=== PATIENT | male | born 1950 | race Caucasian/White ===

== ENCOUNTER 2021-10-26 09:49 | Outpatient (CLI) | payer OTHER, SELFPAY ==
--- NOTE | 2021-10-26 10:15 | MR_ITS ---
[address] [address] Phone:?[phone] Fax:?[phone] Referring Physician Information: Rowdy Farooq M.D. [address] [place] [id number] Phone:?[phone] Fax:?[phone] Patient:Clem Hernandez D.O.B:?1950 Sex:?Male Phone:?[phone] [facility] MRN:?[id number] Exam Date:?10/26/2021 ? EXAM: MRI EXAMINATION OF THE RIGHT SHOULDER CLINICAL INFORMATION: Right shoulder pain. Injury. No history of surgery to this area. Evaluate rotator cuff tear. TECHNICAL INFORMATION: Coronal STIR. Axial, sagittal and coronal PD and T2- weighted images acquired. INTERPRETATION: Bones: There is no Hill-Sachs impaction deformity. There are mild to moderate changes of marrow edema signal without evidence for a fracture centered anterior to the midportion of the greater tuberosity. There is no other bone marrow edema pattern. Rotator Cuff: Complete ruptures identified involving the entirety of the expected supraspinatus and infraspinatus tendon insertions. Maximal tendon retraction is to the level of the glenoid surface. Mild supraspinatus and mild to moderate infraspinatus muscle belly atrophy. Marked atrophy involves the teres minor muscle belly. The tendon insertion is seen to be intact. There is an 8 mm craniocaudal segment of poorly defined partial tearing involving the superior subscapularis tendon insertion. Coracoacromial arch: Elevation of the humeral head in relation to the adjacent glenoid. There is additional undersurface spurring of the acromion. The bony acromiohumeral interval is measuring 1 to 2 mm. Acromioclavicular joint: There is a moderate to marked appearance of AC joint DJD. Biceps tendon: Medial subluxation of the long head biceps tendon from the superior bicipital groove. The tendon is intact and appears normal intra- articular. Glenohumeral joint and labrum: There is a small glenohumeral joint effusion. No discrete loose body within the joint. There is a mild appearance of chondral thinning overlying the superior aspect of the humeral head. No other evidence for glenohumeral chondromalacia. Mild irregularity and fraying involves the superior aspect of the labrum. There is tearing involving the anteroinferior aspect of the labrum continuing through the inferior labrum. No discrete paralabral cyst is identified. CONCLUSION: 1. Complete supraspinatus and infraspinatus tendon ruptures. Maximal tendon retraction is to the glenoid surface. Mild supraspinatus and mild to moderate infraspinatus muscle belly atrophy. 2. There is a small, poorly defined partial-thickness tear involving the superior subscapularis tendon insertion. 3. Biceps kristen lesion with medial subluxation of the long head biceps tendon from the superior bicipital groove. 4. Elevation of the humeral head with marked narrowing of the acromiohumeral interval. 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 5. Mild irregularity and fraying involves the superior labrum. There is tearing involving the anteroinferior and inferior labrum. 6. Mild chondral thinning overlying the superior humeral head, without other glenohumeral chondromalacia. KES Electronically signed on 10/26/2021 2:59:00 PM by Dejuan Hunter M.D.
== END 2021-10-26 09:50 | disposition home or self-care (01) ==
LOC: MRI 09:51
PROVIDERS: Visit Provider Orthopaedic Surgery
DX: M25.511 Pain in right shoulder (principal); M75.101 Unspecified rotator cuff tear or rupture of right shoulder, not specified as traumatic; S46.911A Strain of unspecified muscle, fascia and tendon at shoulder and upper arm level, right arm, initial encounter; S43.401A Unspecified sprain of right shoulder joint, initial encounter
CPT/HCPCS: 73221

== ENCOUNTER 2021-11-09 11:05 | Outpatient (CLI) | payer OTHER, SELFPAY ==
[2021-11-09 13:13] LABS: Chloride* 102 mmol/L (96-114); Potassium* 3.9 mmol/L (3.6-5.1); Sodium* 138 mmol/L (135-149)
[2021-11-09 13:16] LABS: Blood Urea Nitrogen* 29 mg/dL (7-30); Carbon Dioxide* 27 mmol/L (20-32); Creatinine* 1.3 mg/dL (0.5-1.5); Estimated Glomerular Filt Rate 58 ml/min
[2021-11-09 13:17] LABS: Glucose* 107 mg/dL (60-115)
== END 2021-11-09 11:06 | disposition home or self-care (01) ==
LOC: NFLDREF 11:06
PROVIDERS: Visit Provider Family Medicine
DX: Z01.818 Encounter for other preprocedural examination (principal); S46.011A Strain of muscle(s) and tendon(s) of the rotator cuff of right shoulder, initial encounter
CPT/HCPCS: 80048

== ENCOUNTER 2021-11-15 07:54 | Day surgery (SDC) | payer OTHER, SELFPAY ==
[2021-11-15] VITALS (31 sets, daily range): BP systolic 89–145; BP diastolic 61–90; PULSE 57–75; RESP 14–20; TEMP 35.8–36.6; O2SAT 92–99; BMI 27.2
[2021-11-15] MEDS: CELECOXIB 200 MG CAPSULE PO (08:26)
[2021-11-15] MEDS: ACETAMINOPHEN 500 MG TABLET 1000 MG PO (08:26)
[2021-11-15] MEDS: OXYCODONE (CR) 10 MG TAB.ER.12H PO (08:26)
[2021-11-15] MEDS: LACTATED RINGERS 1000 ML 1,000 ML 100 ML IV (08:35)
[2021-11-15] MEDS: SODIUM CHLORIDE 0.9 % (FLUSH) 10 ML SYRINGE IVF (08:35)
--- NOTE | 2021-11-15 08:38 | SUR.PREOP ---
TIME?OUT:?0838 PT/Rebecca DONG RN/Saige LUCAS MDA?VERIFICATION?OF?SURGICAL?SITE,?PROCEDURE,?AND?CONSENT OBTAINED?PRIOR?TO?INVASIVE?PROCEDURE.
[2021-11-15] MEDS: fentaNYL 100 MCG/2 ML inj IVP (08:39)
[2021-11-15] MEDS: MIDAZOLAM HCL 1 MG/ML inj IVP (08:40)
--- NOTE | 2021-11-15 08:43 | P.NB_ITS ---
Nerve Block Nerve Block Time Seen by Provider: 08:42 Date Seen: 11/15/21 Type of block requested by surgeon for post-operative analgesia: interscalene Side: right Time out performed: Yes Verification of patient name: Yes Verification of date of : Yes Site marking: site marked Name of person performing procedure: Tim Continuous monitoring Was continuous monitoring of O2 sat, B/P, lunchroom monitor, recorded every 15 minutes?: Yes Procedure Checklist: sterile prep, needles and gloves Ultrasound guided. Images saved: Yes Medications given in 5ml increments after negative aspiration: Ropivicaine %: 0.5 mL: 20 Needle gauge: 22 Decadron (mg): 10 Precedex (mcg): 25 Patient tolerated procedure well: Yes Block Charges Block Charge (with Pro Fee): Brachial Plexus Use of Ultrasound Machine for Block: Yes- US Guidance/pain block
[2021-11-15] MEDS: CEFAZOLIN 2 GM INJ IVP (09:30)
[2021-11-15] MEDS: SODIUM CHLORIDE IRRIG SOLUTION 3,000 ML, EPINEPHrine 1 MG IRRIGATION (10:58)
--- NOTE | 2021-11-15 11:28 | P.ORPRC_ITS ---
Procedure Note Date of procedure: 11/15/21 Procedure: SURGEON: Rowdy Farooq MD ASSOCIATE DIRECTOR FINANCE: Stacy Mckoy PA-C PREOPERATIVE DIAGNOSIS: Right shoulder rotator cuff tear, AC joint arthrosis, biceps tendinopathy POSTOPERATIVE DIAGNOSIS: Right shoulder massive, irreparable rotator cuff tear, AC joint arthrosis, biceps tendinopathy NAME OF OPERATION: Right shoulder arthroscopic subacromial decompression, distal clavicle excision, mini open rotator cuff debridement, biceps tenodesis ANESTHESIA: Supraclavicular block plus general endotracheal ESTIMATED BLOOD LOSS: 5 mL COMPLICATIONS: None SPECIMENS: None DRAINS: None PREOPERATIVE ANTIBIOTICS: Ancef 2 grams INDICATIONS: The patient is a 71-year-old male with a history of right shoulder pain secondary to the above diagnoses. Despite appropriate non operative management, they continue to have symptoms. Operative intervention was recommended. The risks, benefits and expected outcomes were discussed in detail. These included but were not limited to: Infection, bleeding, injury to blood vessel or nerve, venous thromboembolism. All questions were answered to their satisfaction. PROCEDURE: A supraclavicular block was placed by Anesthesia. General anesthesia was administered. The patient was placed in the high beach chair position. The right shoulder was prepped and draped in the usual sterile fashion. The glenohumeral joint was infiltrated with 20 mL of normal saline with epinephrine. The posterior portal was established, the arthroscope was introduced. The anterior portal was established, Diagnostic arthroscopy was performed with findings as follows: The biceps has a significant amount of intra-articular tendinopathy. The anterior, posterior and superior labrum show age-related degenerative fraying. Articular surfaces on the humeral head and glenoid are normal. There are no loose bodies. There is a full-thickness tear of the supraspinatus and infraspinatus with retraction of the glenoid. The biceps was tenotomized with the scissors. The stump was debrided with the shaver. The arthroscope was placed in the subacromial space, the lateral portal was established. The [employer] [place] was used to dissect the acromion free. The CA ligament was recessed off the anterior acromion, the AC joint was exposed. The acromioplasty was performed with the bur in the posterior portal. The bur was then placed in the lateral portal and the lateral and anterior aspect of the acromion were resected. The undersurface of the distal clavicle was resected through the lateral portal. Finally, the bur was placed in the anterior portal and the remainder of the distal clavicle was resected for a total of 10 mm. An accessory anterolateral portal was placed. The subacromial/subdeltoid bursa was aggressively debrided. There is a full-thickness tear of the supraspinatus and infraspinatus with retraction to the glenoid. A fiber link was placed in the leading edge of the cuff x2. We then spent a significant amount of time mobilizing the cuff on both the joint and bursal surfaces. We were able to m inimally improve the excursion. We elected to attempt mini open rotator cuff repair. Therefore, arthroscopic instruments were removed. The accessory anterolateral portal was extended proximally and distally, subcutaneous dissection was taken with electrocautery to the deltoid. The deltoid was divided in line with its fibers. The static retractor was placed. The subacromial/subdeltoid bursa was debrided with the Mendoza scissors. The greater tuberosity was debrided to punctate bleeding bone using the [place] rongeur. It was difficult to identify the borders of the greater tuberosity, presumably because it had been articulating with the undersurface of the acromion and was therefore smoothed off. We spent a long time mobilizing the rotator cuff on both sides. Despite this we were not able to improve the excursion to get the leading edge of the rotator cuff to the lateral edge of the tuberosity. Therefore, we elected to debride the rotator cuff. If the patient continues to be symptomatic we will plan to bring him back for elective reverse shoulder arthroplasty. A soft tissue biceps tenodesis was done in the groove with a # 2 FiberWire x2. The wound was irrigated with normal saline off the pump. The deltoid was repaired with an 0 Vicryl in an interrupted [id number] fashion. Subcutaneous tissues were closed with a 3-0 Vicryl. Skin was closed with a 3-0 Monocryl in a subcuticular fashion. A dry dressing, polar care and sling were applied. Sponge and needle counts were correct x2. The patient tolerated the procedure well. There were no apparent complications. They were carefully transferred to the hospital bed and taken to the postanesthesia care unit in satisfactory condition. PLAN: The patient will be discharged to home. Active range of motion of the shoulder will be allowed as tolerates. They can work on active range of motion of the elbow, wrist and fingers. They will follow up in the office next week for a wound check and an AP and transscapular Y-view of the shoulder prior to being seen, in preparation for active range of motion with physical therapy. I will plan to see him at 6 weeks postop to assess his progress.
--- NOTE | 2021-11-15 11:38 | W.ANESCHARGE ---
Anesthesia Charges Start Date/Time Anesthesia Start Date: 11/15/21 Anesthesia Start Time: 08:58 Stop Date/Time Anesthesia Stop Date: 11/15/21 Anesthesia Stop Time: 11:39 Summary Emergency: No Extremes of Age: Over 68-CPT 81470
--- NOTE | 2021-11-15 11:42 | W.ANESCHARGE ---
Anesthesia Charges Start Date/Time Anesthesia Start Date: 11/15/21 Anesthesia Start Time: 08:58 Stop Date/Time Anesthesia Stop Date: 11/15/21 Anesthesia Stop Time: 11:39 Summary Emergency: No Extremes of Age: Over 68-CPT 51754
--- NOTE | 2021-11-15 12:01 | SUR.PHASEI ---
Pt denies any breathing of swallowing difficulties. resp 20 and reg o2 sats 94% on nc 3l/min pt states he is very sleepy pt has strong cough reflex
--- NOTE | 2021-11-15 12:07 | SUR.PHASEI ---
Noting bp slowly decreasing HOB placed down to about 15 degrees iv infusing well monitor BP closely notify MDA if BP continues to drop
--- NOTE | 2021-11-15 12:11 | SUR.PHASEI ---
BP up to 110/61
--- NOTE | 2021-11-15 12:16 | SUR.PHASEI ---
MDA into see pt tarah.
[2021-11-15] MEDS: OxyCODONE/APAP 5-325 TABLET PO (18:12)
[2021-11-15] MEDS: SENNOSIDES 1 TAB TABLET 2 TAB PO (20:26)
[2021-11-16 03:15] VITALS: BP 124/76; PULSE 93; RESP 20; TEMP 36.5; O2SAT 92
--- NOTE | 2021-11-16 06:43 | PC.NURSE ---
Shift Note -: Pt pleasant and cooperative, VSS, afebrile, cryo-cuff in place. Pt up to BR with assist of 1, denies dizziness, SOB or difficulty breathing. Pt denies pain. Pt states feeling of tingling in his right hand fingers, able to feel touch to the affected extremity.
[2021-11-16 07:30] VITALS: BP 100/68; PULSE 69; RESP 20; TEMP 36.3; O2SAT 92
== END 2021-11-16 09:37 | disposition home or self-care (01) ==
LOC: OR 14:00 → MEDSURG 11-29 07:44
PROVIDERS: Visit Provider Orthopaedic Surgery
PROC: (CPT 23412; principal; 2021-11-15 09:30)
DX: M75.121 Complete rotator cuff tear or rupture of right shoulder, not specified as traumatic (principal); M19.011 Primary osteoarthritis, right shoulder; M75.21 Bicipital tendinitis, right shoulder
CPT/HCPCS: 29826; 29824; 23430; 01630; 64415; 76942; 94761; 99100; A9270; J0171; J0330; J0690; J1100; J2250; J2405; J2704; J2795; J3010; J3490; J7120